=== PATIENT | female | born 1975 | race African-American/Black ===

== ENCOUNTER 2017-02-09 22:19 | Emergency (ER) | payer OTHER ==
[~2017-02-09] VITALS: Ht 170.2 cm; Wt 97.6 kg
[2017-02-09 23:42] LABS: EOSINOPHIL (%) 1.1 % (0-5); EOSINOPHIL COUNT 0.1 K/uL (0-0.3); HEMATOCRIT 30.8 % (36.0-46.0); IMMATURE GRANULOCYTE (%) 0.2 % (0.0-0.7); INSTRUMENT ABS NEUTROPHIL CT 5.2 K/uL; LYMPHOCYTE COUNT 2.2 K/uL (1.0-2.8); MCH 20.5 PG (29.0-34.0); MCHC 31.2 G/DL (30.0-36.0); MCV 65.7 FL (83-99); MEAN PLAT.VOLUME 9.9 uM^3 (9.5-12.4); MONOCYTE (%) 8.8 % (3-12); MONOCYTE COUNT 0.7 K/uL (0-0.8); NEUTROPHIL (%) 62.5 % (45-76); NEUTROPHIL COUNT 5.2 K/uL (1.8-6.4); PLATELET COUNT 291 K/uL (156-360); RBC DIS.WIDTH-CV 17.2 % (11.8-14.6); RBC DIS.WIDTH-SD 39.3 % (39-53); RED BLOOD COUNT 4.69 M/uL (3.80-5.20); WHITE BLOOD COUNT 8.3 K/uL (4.1-10.2)
[2017-02-09 23:50] LABS: CHLORIDE 106 mEq/L (99-109); POTASSIUM 3.9 mEq/L (3.7-5.4); SODIUM 135 mEq/L (136-147)
[2017-02-09 23:51] LABS: MAGNESIUM 2.1 mg/dL (1.3-2.7)
[2017-02-09 23:52] LABS: GLUCOSE 124 mg/dL (70-99)
[2017-02-09 23:53] LABS: ANION GAP 9 MEQ/L (2-14)
[2017-02-09 23:54] LABS: TOTAL BILIRUBIN 0.3 mg/dL (0.0-1.0)
[2017-02-09 23:56] LABS: ALKALINE PHOSPHATASE 56 IU/L (3-129); GFR ESTIMATE (CALCULATED) > 59 mL/min/
[2017-02-09 23:57] LABS: UREA NITROGEN (BUN) 13 mg/dL (9-23)
[2017-02-10] LABS: TROP-I INTERPRETATION NEGATIVE; TROPONIN-I < 0.01 ng/mL (0.0-0.30)
[2017-02-10 00:04] LABS: QUANTITATIVE HCG < 4.0 MIU/ML
[2017-02-10] MEDS ORDERED: MOTRIN800 MG PO (01:24)
[2017-02-10 01:41] VITALS: BP 134/85
== END 2017-02-10 02:11 | disposition home or self-care (01) ==
LOC: EDBD 22:19 → EME 22:19
PROVIDERS: Emergency Medicine
DX: R07.82 Intercostal pain (principal)
CPT/HCPCS: 71020; 80053; 83735; 84484; 84702; 85025; 93005; 99281; 99285